=== PATIENT | female | born 1995 | race Caucasian/White ===

== ENCOUNTER 2019-01-22 21:37 | Emergency (ER) | payer SELFPAY ==
[2019-01-22] MEDS: METOCLOPRAMIDE 10 MG TAB PO (22:26)
[2019-01-22] MEDS: LIDOCAINE/MYLANTA 40 ML BTL PO (22:26)
[2019-01-22] MEDS: FAMOTIDINE 20 MG TAB PO (22:26)
== END 2019-01-22 23:29 | disposition home or self-care (01) ==
LOC: E/R 21:37
DX: R10.13 Epigastric pain (principal); F17.210 Nicotine dependence, cigarettes, uncomplicated
CPT/HCPCS: 99283